=== PATIENT | female | born 1970 | race African-American/Black ===

== ENCOUNTER 2017-03-13 13:17 | Emergency (ER) | payer OTHER ==
[2017-03-13] MEDS: HYDROCODONE/APAP (5/325) TAB PO (14:59)
[2017-03-13] MEDS: TRIMETHOPRIM/SULFAMETHOX (DS) TAB PO (14:59)
[2017-03-13] MEDS: CEPHALEXIN 500 MG CAP PO (15:00)
== END 2017-03-13 15:16 | disposition home or self-care (01) ==
LOC: FTE 13:17
DX: N61.1 Abscess of the breast and nipple (principal)
CPT/HCPCS: 99284; Z7502